=== PATIENT | female | born 1995 | race Hispanic/Latino ===

== ENCOUNTER → 2020-10-14 | Outpatient (CLI) | payer OTHER | END | disposition home or self-care (01) | LOC: RAH 11:31 | PROVIDERS: ATTEND Family Medicine | DX: N83.201 Unspecified ovarian cyst, right side (principal) | CPT/HCPCS: 76856 ==

== ENCOUNTER → 2020-12-03 | Outpatient (CLI) | payer BC | END | disposition home or self-care (01) | LOC: RAH 09:18 | PROVIDERS: ATTEND Family Medicine | DX: R10.11 Right upper quadrant pain (principal) | CPT/HCPCS: 76700 ==

== ENCOUNTER 2022-11-10 23:15 | Emergency (ER) | payer BC ==
[~2022-11-10] VITALS: Ht 149.9 cm; Wt 57.2 kg
[2022-11-10 23:18] VITALS: BP 129/76
[2022-11-11] MEDS ORDERED: IBUP-1493 PO (00:04)
[2022-11-11] MEDS ORDERED: AMOX1TAB16 PO (00:04)
== END 2022-11-11 00:16 | disposition home or self-care (01) ==
LOC: EDH 23:15
DX: L03.315 Cellulitis of perineum (principal)